=== PATIENT | male | born 1945 | race Caucasian/White ===

== ENCOUNTER → 2017-01-30 | Outpatient (REF) | payer MEDICARE, MEDICAID ==
[~2017-01-30] MED LIST: AC325T PO; ALEN70TA47 PO; ASPI-586 PO; BISM262O27 PO; BUDE10.2 IH; BUSP15TA55 PO; CALC-453 PO; DPH25C PO; GUAI5SYR PO; IBP200T PO; LCT30U PO; LEVO75TA6 PO; LTH300TCR PO; NEOM28OI TP; NO HOME MEDICATIONS; OLAN20TA16 PO; OMEP40CA36 PO; TOLN150S2 TP
[2017-01-30 10:47] LABS: BASOPHILS % (AUTO) 0 % (0-2); EOSINOPHILS % (AUTO) 0 % (0-4); LYMPHOCYTES # (AUTO) 1.2 X10^3; MEAN CORPUSCULAR HGB CONC 32.5 g/dL (31.0-37.0); MEAN PLATELET VOLUME 9.4 FL (6.0-9.5); MONOCYTES # (AUTO) 0.8 X10^3; MONOCYTES % (AUTO) 10 % (3-11); NEUTROPHILS # (AUTO) 6.6 X10^3; NEUTROPHILS % (AUTO) 76 % (51-67); PLATELET COUNT 311 10^3uL (150-450); WHITE BLOOD COUNT 8.64 10^3uL (4.0-11.0)
[2017-01-30 10:48] LABS: MEAN CORPUSCULAR VOLUME 99 FL (80-100)
[2017-01-30 11:15] LABS: ANION GAP 15.4 MEQ/L (3-15)
== END ==
LOC: LAB 10:36
PROVIDERS: ATTEND Family Medicine
DX: Z51.81 Encounter for therapeutic drug level monitoring (principal); E03.8 Other specified hypothyroidism
CPT/HCPCS: 80048; 80178; 84443; 85025